=== PATIENT | female | born 1975 | race Caucasian/White ===

== ENCOUNTER 2022-08-01 13:28 | Emergency (ER) | payer MEDICAID ==
[~2022-08-01] VITALS: Ht 167.6 cm; Wt 73.0 kg
[2022-08-01] MEDS ORDERED: SODIUM CHLORIDE 0.9% 1,000 ML IV ONE (14:00)
[2022-08-01] MEDS ORDERED: ONDANSETRON HCL 4MG/2ML INJ IV ONE ×2 (14:00→18:15)
[2022-08-01] MEDS ORDERED: FAMOTIDINE 20MG/2ML VIAL IV ONE (14:00)
[2022-08-01 14:09] LABS: BASOPHILS % 0.3 % (0.0-2.0); EOSINOPHILS % 0.5 % (0.0-5.0); HEMATOCRIT. 37.1 % (36.0-48.0); HEMOGLOBIN. 12.7 g/dL (12.0-16.0); LYMPHOCYTES % 15.8 % (20.0-50.0); MEAN CORPUSCULAR HEMOGLOBIN 31.3 pg (28.0-32.0); MEAN CORPUSCULAR VOLUME 91.4 fL (81.0-99.0); MEAN PLATELET VOLUME 8.6 fl (7.4-10.4); MONOCYTES % 6.9 % (2.0-8.0); NEUTROPHILS % 76.5 % (40.0-76.0); PLATELET 267 x1000/uL (130-400); RED BLOOD CELL COUNT 4.06 mill/uL (4.2-5.4)
[2022-08-01 14:23] LABS: HCG SCREEN NEGATIVE
[2022-08-01 14:27] LABS: CHLORIDE 108 mEq/L (98-107)
[2022-08-01 14:37] LABS: BETA HYDROXYBUTYRATE 0.1 mMol/L (0.0-0.3)
[2022-08-01] MEDS ORDERED: MECLIZINE 25MG TABLET PO ONE (15:15)
[2022-08-01] MEDS ORDERED: MECLIZINE 12.5MG TABLET PO NR (15:15)
[2022-08-01 18:09] VITALS: BP 150/76
[2022-08-01] MEDS ORDERED: ONDA4TAB50 MT (18:20)
[2022-08-01] MEDS ORDERED: MECL-159 MT (18:20)
== END 2022-08-01 18:50 | disposition home or self-care (01) ==
LOC: ER 13:28
DX: R42 Dizziness and giddiness (principal); R51.9 Headache, unspecified; E11.9 Type 2 diabetes mellitus without complications; I10 Essential (primary) hypertension
CPT/HCPCS: 36415; 70450; 71045; 80053; 82010; 83690; 84484; 84703; 85025; 96361; 96374; 96375; 96376; 99285; J2405; J3490; J7030; J8597